=== PATIENT | female | born 1960 | race Caucasian/White ===

== ENCOUNTER 2018-07-15 15:54 | Inpatient (IN) | payer MEDICAID, OTHER ==
[~2018-07-15] VITALS: Ht 157.5 cm; Wt 92.5 kg
--- NOTE | 2018-07-15 16:10 | NUR ---
BIB DAUGHTER FROM HOME, C/O HEART PALPITATION AND SOB x 3 DAYS. PATIENT A/OX4, NO RESP. DISTRESS NOTED. PLACED ONT HE MONITOR.
[2018-07-15 16:33] LABS: BASOPHILS % (AUTO) 0.6 % (0.0-2.0); EOSINOPHILS % (AUTO) 3.6 % (0.0-6.0); HEMATOCRIT 32 % (33-45); HEMOGLOBIN 10.6 g/dL (11.5-14.8); LYMPHOCYTES # (AUTO) 1.3 /CMM (0.8-4.8); LYMPHOCYTES % (AUTO) 31.3 % (20.0-44.0); MEAN CORPUSCULAR HGB CONC 33 g/dl (31.0-36.0); MEAN CORPUSCULAR VOLUME 98 fL (82-100); MONOCYTES # (AUTO) 0.3 /CMM (0.1-1.30); MONOCYTES % (AUTO) 7.9 % (2.0-12.0); NEUTROPHILS # (AUTO) 2.4 /CMM (1.8-8.9); NEUTROPHILS % (AUTO) 56.6 % (43.0-81.0); PLATELET COUNT (AUTO) 179 /CMM (150-450); RED BLOOD CELL COUNT(AUTO) 3.25 MIL/uL (4.0-5.2); WHITE BLOOD COUNT (AUTO) 4.2 K/uL (4.3-11.0)
[2018-07-15 16:38] LABS: CALCIUM, SERUM 9.7 mg/dL (8.5-10.1); CARBON DIOXIDE 21 mmol/L (21-32); CHLORIDE 104 mmol/L (98-107); CREATININE 1.5 mg/dL (0.6-1.3); GLUCOSE 267 mg/dL (74-106); POTASSIUM 5.6 mmol/L (3.5-5.1); SODIUM SERUM 134 mmol/L (136-145); UREA NITROGEN, BLOOD 34 mg/dL (7-18)
[2018-07-15 16:50] LABS: B-TYPE NATRIURETIC PEPTIDE 75 PG/ML (0-125)
[2018-07-15] MEDS ORDERED: METO-358 PO (17:26)
[2018-07-15] MEDS ORDERED: FOLI1TAB16 PO (17:26)
[2018-07-15] MEDS ORDERED: LEVO75TA7 PO (17:26)
[2018-07-15] MEDS ORDERED: FENO145T35 PO (17:26)
[2018-07-15] MEDS ORDERED: FURO40TA5 PO (17:26)
[2018-07-15] MEDS ORDERED: RANI150T8 PO (17:26)
[2018-07-15] MEDS ORDERED: SPIR25TA6 PO (17:26)
[2018-07-15] MEDS ORDERED: ENAL10TA PO (17:26)
[2018-07-15] MEDS ORDERED: PANT40TA4 PO (17:26)
[2018-07-15] MEDS ORDERED: HYDR-4077 PO (17:26)
[2018-07-15] MEDS ORDERED: PRAV40TA3 PO (17:26)
[2018-07-15] MEDS ORDERED: LOSA1TAB39 PO (17:26)
[2018-07-15] MEDS ORDERED: ISOS30TA6 PO (17:26)
[2018-07-15] MEDS ORDERED: MECL-102 PO (17:26)
[2018-07-15] MEDS ORDERED: RANO500T3 PO (17:26)
[2018-07-15] MEDS ORDERED: CLON0.1T PO (17:26)
[2018-07-15] MEDS ORDERED: INSU100I14 PO (17:26)
[2018-07-15] MEDS ORDERED: METF-441 PO (17:26)
[2018-07-15] MEDS ORDERED: INSU200I4 SQ (17:30)
[2018-07-15] MEDS ORDERED: NIAC500T2 PO (17:30)
[2018-07-15] MEDS ORDERED: ASPI-605 PO (17:30)
[2018-07-15] MEDS ORDERED: IV NS 0.9% 1,000 ML BAG IV ONE (17:30)
--- NOTE | 2018-07-15 17:48 | NUR ---
GAVE CLINICALS FOR PT TO AUTHORIZE ADMISSION
[2018-07-15] MEDS ORDERED: ASPIRIN 81 MG TAB.CHEW PO ONE (19:00)
[2018-07-15] MEDS ORDERED: ASPIRIN 81 MG TAB.CHEW ONE (19:07)
--- NOTE | 2018-07-15 19:36 | NUR ---
PATIENT ENDORSED TO ROBERTO DEE FOR VÍCTOR.
--- NOTE | 2018-07-15 21:00 | NUR ---
REPORT GIVEN TO LUIZ YOO FOR VÍCTOR
--- NOTE | 2018-07-15 21:30 | NUR ---
PT BEING WHEELED TO UNIT WITH EMT AND RM AT BEDSIDE. ACLS PROTOCOL WHILE TRANSPORT. PT IS STABLE CONDITION FOR TRANPORT
[2018-07-15] MEDS ORDERED: CLONIDINE HCL 0.1 MG TABLET PO ONE (22:00)
[2018-07-15] MEDS ORDERED: DEXTROSE 50%-WATER 50 ML DISP.SYRIN IV PRN (22:00)
[2018-07-15] MEDS: *INSULIN REGULAR(HUMULIN R)HUM 100 UNIT/ML VIAL SQ PRN (22:22)
--- NOTE | 2018-07-15 22:22 | NUR ---
RN NOTES BSL checked- 204 mg/dL. Insulin 4unites given per sliding scale. Snacks provided
[2018-07-15] MEDS: AMLODIPINE BESYLATE 10 MG TABLET PO SCH (22:23)
[2018-07-15] MEDS: Magnesium 1GM/D5W 100ML PREMIX 100 ML IV SCH ×2 (22:23→23:34)
[2018-07-15] MEDS: PANTOPRAZOLE 40 MG TABLET.DR PO SCH (22:23)
--- NOTE | 2018-07-15 22:30 | NUR ---
POWERBUILDERCATALOGUE MAKER NOTES Patient came to unit via gurney for chest pain, accompanied by family. Patient is alert, oriented x 4. Breathing even and unlabored. Not in any distress, on room air. IV line on LAC g#20 intact and patent, flushes well. Skin assessment done- no skin issues noted. Patient able to ambulate to the bathroom. Tele monitor in place- sinus rhythm 84. Oriented to call light- placed within easy reach. Bed in low, locked position, side rails x2 up. Will continue to monitor accordingly
[2018-07-15] MEDS: BLOOD SUGAR DIAGNOSTIC 1 EACH STRIP VI SCH (22:33)
--- NOTE | 2018-07-15 23:13 | NUR ---
RN NOTES Patient requested for tylenol for mild headache. Dr. Qiu informed. Telephone order of Tylenol 650mg PO q6h PRN. Order noted and carried out
[2018-07-15] MEDS: ACETAMINOPHEN 325 MG TABLET PO PRN (23:17)
--- NOTE | 2018-07-15 23:41 | NUR ---
RN NOTES Misc. order to continue all home meds except metformin, losartan HCTZ, lasix and enalapril. Copy of home meds faxed to pharmacy
--- NOTE | 2018-07-16 00:20 | NUR ---
RN NOTES Patient complaining of chest pain. Vital signs checked: BP- 148/79, HR- 99, RR- 18, T- 97.9, SPO2- 99%. Put the patient on O2 at 2LPM and repositioned her in a comfortable position. There are no changes on tele monitor. CN made aware.
[2018-07-16 00:23] VITALS: BP 148/79
--- NOTE | 2018-07-16 00:30 | NUR ---
RN NOTES Patient stated that she is feeling okay. No more chest pain. Will continue to monitor
[2018-07-16 04:00] VITALS: BP 132/64
[2018-07-16 04:18] VITALS: BP 132/64
[2018-07-16] MEDS: BLOOD SUGAR DIAGNOSTIC 1 EACH STRIP VI SCH ×3 (06:52→22:25)
[2018-07-16 06:53] LABS: BASOPHILS % (AUTO) 0.6 % (0.0-2.0); EOSINOPHILS % (AUTO) 4.4 % (0.0-6.0); HEMATOCRIT 31 % (33-45); HEMOGLOBIN 10.4 g/dL (11.5-14.8); LYMPHOCYTES # (AUTO) 1.3 /CMM (0.8-4.8); LYMPHOCYTES % (AUTO) 39.5 % (20.0-44.0); MEAN CORPUSCULAR HGB CONC 34 g/dl (31.0-36.0); MEAN CORPUSCULAR VOLUME 97 fL (82-100); MONOCYTES # (AUTO) 0.3 /CMM (0.1-1.30); NEUTROPHILS # (AUTO) 1.5 /CMM (1.8-8.9); NEUTROPHILS % (AUTO) 47.5 % (43.0-81.0); PLATELET COUNT (AUTO) 158 /CMM (150-450); RED BLOOD CELL COUNT(AUTO) 3.21 MIL/uL (4.0-5.2); WHITE BLOOD COUNT (AUTO) 3.2 K/uL (4.3-11.0)
[2018-07-16] MEDS: INSULIN REGULAR, HUMAN 100 UNIT/ML 3 ML VIAL SQ PRN ×2 (06:53→17:38)
--- NOTE | 2018-07-16 07:00 | NUR ---
ARCHITECTURE TECHNICIAN CLOSING NOTES Patient resting in bed, alert, oriented x 4. Breathing even and unlabored. Not in any distress. Tele monitor in place- sinus rhythm 97. No complaints at this time. BSL 221mg/dL. No insulin coverage given as patient is NPO for CT angio of the heart. Safety measures in place; call light within reach. Bed in lowest, locked position. Will endorse VÍCTOR to oncoming RN
[2018-07-16 07:22] LABS: CHOLESTEROL 128 mg/dL (<200); HDL CHOLESTEROL 24 mg/dL (40-60); LDL 71 mg/dL (0-99); TRIGLYCERIDES 212 mg/dL (30-150)
[2018-07-16 07:23] LABS: CALCIUM, SERUM 9.7 mg/dL (8.5-10.1); CARBON DIOXIDE 22 mmol/L (21-32); CHLORIDE 108 mmol/L (98-107); GLUCOSE 238 mg/dL (74-106); MAGNESIUM 1.8 mg/dL (1.8-2.4); POTASSIUM 5.1 mmol/L (3.5-5.1); SODIUM SERUM 140 mmol/L (136-145); UREA NITROGEN, BLOOD 26 mg/dL (7-18)
--- NOTE | 2018-07-16 07:30 | NUR ---
GROUND WATER TECHNICIAN NOTES PT IN BED, AWAKE, ALERT AND ORIENTED, NO COMPLAINT AT THIS TIME, RESPIRATIONS NORMAL, CALL LIGHT WITHIN REACH, PLAN OF CARE DISCUSSED WITH PT, VERBALIZED UNDERSTANDING.
[2018-07-16 08:00] VITALS: BP 145/80
[2018-07-16] MEDS ORDERED: PANTOPRAZOLE 40 MG TABLET.DR PO SCH (08:30)
[2018-07-16] MEDS ORDERED: LEVOTHYROXINE SODIUM 75 MCG TABLET PO SCH (08:30)
[2018-07-16] MEDS: PANTOPRAZOLE 40 MG TABLET.DR PO SCH (08:55)
[2018-07-16] MEDS ORDERED: ISOSORBIDE MONONITRATE (30MG) 30 MG TAB.SR.24H PO SCH (09:00)
[2018-07-16] MEDS ORDERED: MECLIZINE HCL 25 MG TABLET PO SCH (09:00)
[2018-07-16] MEDS ORDERED: NIACIN EXT TAB (500MG) 500 MG TABLET.SA PO SCH (09:00)
[2018-07-16] MEDS ORDERED: ASPIRIN EC 81 MG TABLET.DR PO SCH (09:00)
[2018-07-16] MEDS ORDERED: FOLIC ACID 1 MG TABLET PO SCH (09:00)
[2018-07-16] MEDS ORDERED: FUROSEMIDE 40 MG TABLET PO SCH (09:00)
[2018-07-16] MEDS ORDERED: Medication Not On Formulary EA (Ranolazine (Ranexa) 500 MG) PO SCH (09:00)
[2018-07-16] MEDS ORDERED: FENOFIBRATE NANOCRYS (145 MG) 145 MG TABLET PO SCH (09:00)
[2018-07-16] MEDS ORDERED: VALSARTAN 80 MG TABLET PO SCH (09:00)
[2018-07-16] MEDS ORDERED: FAMOTIDINE (20 MG) 20 MG TABLET PO SCH (09:10)
[2018-07-16] MEDS ORDERED: CLONIDINE HCL 0.1 MG TABLET PO PRN (09:30)
[2018-07-16] MEDS: AMLODIPINE BESYLATE 10 MG TABLET PO SCH (09:47)
[2018-07-16] MEDS ORDERED: AMLO10TA4 PO (09:58)
--- NOTE | 2018-07-16 10:32 | NUR ---
CORE MAKER HELPER NOTES SEEN BY DR. LANDRY, PER , OK TO DISCHARGE OF CTA NEGATIVE, PT INFORMED, VERBALIZED UNDERSTANDING.
[2018-07-16] MEDS ORDERED: IOHEXOL-350 100 ML VIAL IV ONE (11:22)
[2018-07-16] MEDS ORDERED: METOPROLOL TARTRATE INJ 5 MG/5 ML AMPUL ONE ×2 (11:30→12:00)
[2018-07-16] MEDS: METOPROLOL TARTRATE 50 MG TABLET PO SCH ×2 (12:00→17:23)
--- NOTE | 2018-07-16 12:00 | NUR ---
LOPRESSOR NON ADMIN, PT CURRENTLY HAVING CTA.
[2018-07-16] MEDS ORDERED: NITROGLYCERIN 0.4 MG/TAB BOTTLE SL ONE (12:30)
[2018-07-16] MEDS ORDERED: METOPROLOL TARTRATE INJ 5 MG/5 ML AMPUL IVP ONE (12:30)
[2018-07-16] MEDS ORDERED: IV NS 0.9% 500 ML IV ONE (12:30)
[2018-07-16] MEDS ORDERED: INSULIN GLARGINE, 100 UNIT/ML CARTRIDGE SQ SCH (13:00)
[2018-07-16] MEDS: METFORMIN 850 MG TABLET PO SCH ×2 (13:40→17:22)
[2018-07-16 16:00] VITALS: BP 136/77
--- NOTE | 2018-07-16 19:00 | NUR ---
RN MS NOTES PT IN BED, AWAKE, ALERT AND ORIENTED, NO COMPLAINT OF PAIN OR ANY DISCOMFORT AT THIS TIME, TOLERATES CURRENT DIET, NO SOB, DR. LANDRY AND DR. TELLO INFORMED OF CTA RESULT, PT FOR TRANSFER TO [facility] FOR CARDIO WORK UP, PT AND FAMILY AWARE, AWAITING PLACEMENT ARRANGEMENTS, PM MEDS GIVEN, ALL NEEDS ATTENDED.
--- NOTE | 2018-07-16 19:15 | NUR ---
MS/RN NOTES RECEIVED PT. LYING IN BED. PT. IS AWAKE, ALERT AND ORIENTED X4. BREATHING EVEN AND UNLABORED ON ROOM AIR. NO SOB, RESPIRATORY DISTRESS OR COMPLAINTS OF PAIN NOTED AT THIS TIME. NO COMPLAINTS OF CHEST PAIN NOTED AT THIS TIME AND THROUGHOUT SHIFT. NO S/S OF HYPO/HYPERGLYCEMIA NOTED AT THIS TIME. PT. WITH LEFT AC 20 GAUGE IV SALINE LOCK AND RIGHT AC 18 GAUGE IV SALINE LOCK PRESENT, PATENT AND INTACT. PT. FAMILY MEMBERS PRESENT AT BEDSIDE. PER DAYSHIFT NURSE PT. IS PENDING TRANSFER TO [facility]. AWAITING MORE INFORMATION FROM CASE MANAGEMENT, NO PICKUP TIME OR ROOM GIVEN YET. BED LOCKED AND IN LOWEST POSITION, SIDE RAILS UP X2, CALL LIGHT WITHIN REACH, WILL CONTINUE TO MONITOR.
[2018-07-16 20:20] VITALS: BP 124/65
--- NOTE | 2018-07-16 20:45 | NUR ---
MS/RN NOTES RECEIVED PHONE CALL FROM CYNTHIA AT [facility]. PER CYNTHIA PT. WILL BE TRANSFERRED TO [facility], BED IS AVAILABLE. PER CYNTHIA: [facility] WILL CALL WITH AMBULANCE BLUEPRINT TRIMMER INFORMATION AND BED NUMBER. WILL AWAIT CALL FROM [facility].
--- NOTE | 2018-07-16 21:10 | NUR ---
MS/RN NOTES RECEIVED CALL FROM [facility]. SHE STATED PT. WILL BE PICKED UP VIA [facility] AT 2215. PT. WILL BE GOING TO [facility] ROOM 528 BED B. THE ACCEPTING DOCTOR IS DR. LANDRY. CALLED PT. DAUGHTER CRISTINA TO UPDATE HER ON PT. TRANSFER STATUS. WILL CONTINUE TO MONITOR.
--- NOTE | 2018-07-16 21:50 | NUR ---
MS/RN NOTES CALLED AND GAVE REPORT TO LUIZ DOUGLAS AT [facility]. PT. WILL BE GOING TO ROOM 528 BED B AND THE ACCEPTING DOCTOR IS DR. LANDRY.
[2018-07-16] MEDS: ACETAMINOPHEN 325 MG TABLET PO PRN (22:25)
[2018-07-16] MEDS: *INSULIN REGULAR(HUMULIN R)HUM 100 UNIT/ML VIAL SQ PRN (22:26)
--- NOTE | 2018-07-16 23:17 | NUR ---
MS/RN NOTES PT. IS SITTING UP IN BED, AWAKE, ALERT AND ORIENTED X4. BREATHING EVEN AND UNLABORED ON ROOM AIR. NO SOB, RESPIRATORY DISTRESS OR COMPLAINTS OF PAIN NOTED AT THIS TIME. NO COMPLAINTS OF CHEST PAIN NOTED AT THIS TIME AND THROUGHOUT SHIFT. NO S/S OF HYPO/HYPERGLYCEMIA NOTED AT THIS TIME. PT. WITH LEFT AC 20 GAUGE IV SALINE LOCK AND RIGHT AC 18 GAUGE IV SALINE LOCK PRESENT, PATENT AND INTACT. PT. IS BEING TRANSFERRED TO [facility] ROOM 528 BED B FOR HIGHER LEVEL OF CARE. PT. DISCHARGE PAPERWORK, EXITCARE AND BELONGINGS LIST COMPLETED ORIGINALS PLACED IN PT. CHART AND COPY PROVIDED TO PT. AMBULANCE ARRIVED FOR PICKUP, REPORT GIVEN TO EMT'S. PT. LEFT THE FLOOR VIA GURNEY IN STABLE CONDITION ACCOMPANIED BY DRAW FURNACE TENDER AT 2317.
[2018-07-17] MEDS ORDERED: ATORVASTATIN 10 MG TABLET PO SCH (09:00)
[2018-07-17] MEDS ORDERED: LOSARTAN/HCTZ 50-12.5MG/ 1 EA TABLET PO SCH (09:00)
== END 2018-07-16 23:20 | disposition short-term general hospital (02) | DRG 203 ==
LOC: ER 15:54 → TELE 21:24 → MED 07-16 10:33
PROVIDERS: ADMIT Internal Medicine; ATTEND Internal Medicine
DX: R07.89 Other chest pain (principal); E66.01 Morbid (severe) obesity due to excess calories; E87.5 Hyperkalemia; E11.9 Type 2 diabetes mellitus without complications; E87.6 Hypokalemia; I10 Essential (primary) hypertension; E78.5 Hyperlipidemia, unspecified; E03.9 Hypothyroidism, unspecified; Z79.4 Long term (current) use of insulin; Z79.82 Long term (current) use of aspirin; Z79.899 Other long term (current) drug therapy; Z88.1 Allergy status to other antibiotic agents; K29.70 Gastritis, unspecified, without bleeding; K46.9 Unspecified abdominal hernia without obstruction or gangrene; G47.33 Obstructive sleep apnea (adult) (pediatric); Z79.84 Long term (current) use of oral hypoglycemic drugs; T50.905A Adverse effect of unspecified drugs, medicaments and biological substances, initial encounter; Y92.9 Unspecified place or not applicable; Z68.37 Body mass index [BMI] 37.0-37.9, adult
CPT/HCPCS: 36415; 71045-TC; 75574; 80048-TC; 80061-TC; 82962-TC; 83735-TC; 83880; 84484-TC; 85025-TC; 85730-TC; 87081-TC; 93307-TC; 94799-TC; G0378; J1815; J3475; J3490; J7030; J8597; Q9967